=== PATIENT | male | born 1995 | race Caucasian/White ===

== ENCOUNTER 2018-11-23 21:19 | Emergency (ER) | payer OTHER ==
[~2018-11-23] VITALS: Ht 175.3 cm; Wt 69.0 kg
[2018-11-23 21:22] VITALS: Ht 175.3 cm; Wt 69.0 kg
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
[2018-11-24 00:15] VITALS: BP 132/77; PULSE 74; RESP 18
== END 2018-11-24 00:15 | disposition home or self-care (01) ==
LOC: FTE 21:19
DX: M25.511 Pain in right shoulder (principal)